=== PATIENT | male | born 1995 | race Caucasian/White ===

== ENCOUNTER 2018-07-13 09:45 | Outpatient (RCR) | payer OTHER ==
--- NOTE | 2018-05-11 13:25 | PT INITIAL EVALUATION ---
MEDICAL DIAGNOSIS: M24.411, M75.51, shoulder arthroscopic labral repair (ant/post) and bursectomy TREATMENT DIAGNOSIS: same DATE OF ONSET: 04/04/18 SUBJECTIVE: Gorge Mcknight presents to physical therapy status post R shoulder arthroscopic labral repair (anterior/posterior) and bursectomy on April 04, 2018. He reports that he is starting to wean himself out of his sling. He reports that he has been moving his shoulder to pain limits and is not progressing past pain limites with wall slides, swings, and hangs of his R shoulder. He reports that he has front-top pain currently and rates it to be 4/10. He reports that he has been following his precautions of not lifting or going past the pain when stretching. He reports that if he sleeps incorrectly or moves too quickly the pain in his shoulder will increase to 6/10. He reports that if he is resting and not doing anything along with icing, he rates the pain to be 2/10. He reports that he has returned to work but has not broken his precautions. His work will require him to lift light and heavy boxes, stock items, assist customers, and moving items above his head in the future. Pain location is anterior superior portion of his shoulders and described as dull ache. Pain scale is 4 on a ten point pain scale. 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 He had empty end feels in all directions. Will test AAROM and AROM in the future Strength: Will test in the future based on his healing parameters Palpation: TTP: anterior superior of GH joint Sensation: Intact C2-T2 Special Tests: Scapular movements: superior, medial, inferior, lateral: minimal restriction Mobility: Independent Gait: No gait deviations noted ASSESSMENT: Gorge will benefit from skilled physical therapy addressing the listed impairments to improve and return to prior level of function based on healing and protocol parameters. Short Term Goals 4 weeks: Pt will demonstrate full PROM-AROM of R shoulder in all motions with normal end feels to improve function and QOL. 6 weeks: Pt will will demonstrate increased rotator cuff strengthening and independent on his home exercise program. Patient's Goals get full range of motion and start with the strengthening. PLAN: Patient to be seen for Manual Therapy/STM/MET Strengthening/condition Ice/Heat Range of Motion Work Hardening/Cond Stretching Iontophoresis Neuromuscular Re-ed Closed Chain Program Electrical Stim Home Exercise Program Therapeutic Activities 2x/Week for 6 Weeks If you have any questions, comments, or concerns about this report or plan, please contact me at . Thank you, Carlos Eduardo Goyal, PT, DPT MTDD
--- NOTE | 2018-07-13 10:53 | PT PLAN OF CARE ---
Physician: Max Rossi MD Patient is being seen: 2x/week Therapist: Carlos Eduardo Goyal, PT, DPT Medical Diagnosis: M24.411, M75.51, shoulder arthroscopic labral repair (ant/post) and bursectomy Treatment Diagnosis: same Date of Onset: 04/04/18 Date of Initial Evaluation: 05/10/18 Date patient was last seen: 07/13/18 Number of treatments: 10 Number of cancellations/No shows: 0 INTERVENTIONS: Manual Therapy/STM/MET Strengthening/condition Ice/Heat Range of Motion Work Hardening/Cond Stretching Iontophoresis Neuromuscular Re-ed Closed Chain Program Electrical Stim Home Exercise Program Therapeutic Activities GOALS: 4 weeks: Pt will demonstrate full PROM-AROM of R shoulder in all motions with normal end feels to improve function and QOL. MET 6 weeks: Pt will will demonstrate increased rotator cuff strengthening and independent on his home exercise program. Progressing PATIENT'S GOAL: get full range of motion and start with the strengthening. Status of Patient's Goals: Progressing well Patient Compliance: Good Prognosis: Excellent Reasons for continuing therapy: This is a progress note for Gorge Roxanna. He reports that he is doing well. He reports that he has been stretching his R shoulder in all directions every day. He reports that he has been performing his strengthening approximately 2-3 times per week. He denies any pain. He is progressing well and has demonstrated the following improvements: increased R shoulder PROM-AROM to full in all directions as compared to his L shoulder PROM- AROM in all directions, increased periscapular and RTC strength, and is coming closer to returning to prior level of function. We will continue to improve strength and return to his prior level and then discharge to [facility] in the next 5 to 10 sessions. Posture: He demonstrates normal posture mechanics ROM: PROM: flexion: 180 deg, abduction: 180 deg, scaption: 30065 deg, IR: 90 deg, ER: 90 deg. He had normal end feels in all directions. Strength: R shoulder: IR: 4+/5, ER: 4/5, flexion: 4+/5, scaption: 4/5, abduction: 4/5, extension: 5/5. Palpation: TTP: He is not TTP Special Tests: Scapular movements: superior, medial, inferior, lateral: NIL Mobility: Independent If you have any questions, please contact me at [phone]. Thank you, Carlos Eduardo Goyal, PT, DPT MTDD
--- NOTE | 2018-07-21 17:50 | NUR ---
"To whom it may concern, It is my impression that Mr. Gorge Mcknight is able to participate in full scuba diving activities without restrictions secondary to his recent right shoulder injury. At this time, Mr. Mcknight has demonstrated full mobility of his right shoulder with good stability with resistance. Post-surgical healing is now past the acute phase and is at low risk for re-injury. Mr. Mcknight has been instructed to discontinue any activities causing pain to his surgical shoulder if it does occur. If you have any questions or concerns, please feel free to contact me at [phone]. Thank you, Louise Mason, PT, DPT, CLT Physical Therapist [facility] | [address] [place] [id number] [email or web address] Addendum: 07/21/18 at 1751 by LOUISE MASON PT Amended: Links added."
== END 2018-08-08 ==
LOC: PT 09:45
PROVIDERS: ATTEND Orthopaedic Surgery Pediatric Orthopaedic Surgery
DX: Z47.89 Encounter for other orthopedic aftercare (principal); M25.511 Pain in right shoulder
CPT/HCPCS: 97161